=== PATIENT | female | born 1950 | race Caucasian/White ===

== ENCOUNTER 2024-07-31 06:33 | Emergency (ER) | payer MEDICARE, OTHER, SELFPAY ==
[2024-07-31 06:36] VITALS: BP 157/83
--- NOTE | 2024-07-31 07:32 | ED.GENMED ---
History of Present Illness
General
Chief Complaint: Urinary Symptoms
Source: patient
Time Seen by Provider: 07/31/24 07:21
History of Present Illness
History of Present Illness:
73yoF with a history of hypothyroidism and GERD presenting for evaluation of UTI symptoms. Symptoms initially began on 07/10/24. She initially started with a 'weird feeling' in her bladder with urinary frequency. She took pyridium for a few days
without improvement. She called her PCP who prescribed her Cipro but no urine testing was sent at that time. She took 3 days of Cipro without improvement and she was seen at [facility]. She had lab work as well as a urinalysis at that time and
she was told that the urine testing was negative for infection. She continues to have urinary frequency. She developed dysuria yesterday and had a sharp pain in her suprapubic region after urination. Her PCP told her to go to the ED for a CT scan.
She denies any fevers, chills, vomiting, flank pain. She has a history of frequent UTIs after intercourse in the past but she has not had a UTI in about 10 years.
Phy Exam
General Physical Exam
General Presentation: well appearing and no apparent distress
General age: appears stated age
General Skin: warm and dry
General Habitus: normal
Cardiovascular Exam
Cardiovascular Exam: regular rate/rhythm
Pulmonary Exam
Pulmonary Exam: lungs clear, no respiratory distress, no crackles and no wheezing
Gastrointestinal Exam
Gastrointestinal Exam: soft, non distended, no cva tenderness and tender (Mild tenderness in suprapubic region)
Skin Exam
Skin Exam: normal color and warm/dry
Psychiatric Exam
Psychiatric Exam: normal mood/affect
Course
Orders/Labs/Results
Orders:
Orders
07/31/24 07:31
0.9% Sodium Chloride 500 ml [Nss] 500 ml IV BOLUS
07/31/24 07:38
Complete Blood Count/With Diff Urgent
Comprehensive Metabolic Panel Urgent
Urinalysis Reflex To Culture Urgent
Date Specimen was Collected: 07/31/24
Time Specimen was Collected: 07:36
07/31/24 07:39
CT Abd/pel Without Iv Or Oral Urgent
Comment:
Reason For Exam: Suprapubic pain, urinary frequency
Abnormal Lab Results
07/31/24
07:38
WBC 4.4 L 10^3/uL
(4.8-10.8)
MPV 10.7 H fL
(7.4-10.4)
Monocytes % 11.0 H %
(1.7-9.3)
Carbon Dioxide 33 H mmol/L
(22-30)
Total Bilirubin 1.5 H mg/dl
(0.2-1.3)
07/31/24 07:38
07/31/24 07:38
Vital Signs
Initial and Last Documented VS:
Initial Vital Signs
Temp Pulse Resp BP Pulse Ox
98.1 F 59 16 157/83 100
07/31/24 06:36 07/31/24 06:36 07/31/24 06:36 07/31/24 06:36 07/31/24 06:36
Last Documented Vital Signs
Temp Pulse Resp BP Pulse Ox
98.1 F 84 16 108/64 98
07/31/24 06:36 07/31/24 10:26 07/31/24 10:26 07/31/24 10:26 07/31/24 10:26
MDM/Problems Addressed
Differential Diagnosis Includes:
73yoF here with several weeks of UTI symptoms. She was treated with Cipro earlier in the month without improvement. Urine culture sent from urgent care on 07/19 was negative. Patient here with persistent symptoms. No fevers, vomiting, flank pain.
Patient is afebrile and hemodynamically stable. She is well-appearing in no acute distress. She has mild tenderness in the suprapubic region on exam. No CVA tenderness noted. Differential diagnosis includes but is not limited to: UTI,
pyelonephritis, kidney stone
Initial ED plan: Check CBC, CMP, UA, and CT abdomen. Patient has allergy to IV contrast (hives) and states that she is unable to receive Benadryl and epinephrine due to prior side effects. Will proceed with CT without contrast.
*Critical Care Note
Total Time (30-74mins, 75-104mins- exclusive of procedures): Not Applicable
Update Note
Update Note:
Labs overall unremarkable. Renal function and glucose normal. UA bland without any signs of infection or microscopic hematuria. CT abdomen is negative for acute findings. Unclear etiology of symptoms. She has an appt with gynecology and
urogynecology upcoming this week. ED return precautions discussed. She was discharged in stable condition.
ED Attending Note
-
Portions of this chart may have been created with voice recognition software.� Occasional wrong word or��sound alike� substitutions may have occurred due to the inherent limitations of voice recognition software.
Discharge Plan
Departure
Patient Disposition: Home (Routine Discharge)
Date of Disposition: 07/31/24
Time of Disposition: 10:01
Patient with high blood pressure during this ER visit?: No
Discharge Problem:
Urinary frequency, Dysuria
Instructions: Urinalysis
Referrals:
Claudia Baez MD [Family Provider] -
Activity Restrictions/Additional Instructions:
Please follow-up with urogynecology this week as previously scheduled. Return to the ER with any new or worsening symptoms.
Interventions
Interventions:
*Risk Screen - Suicide Last Done: 07/31/24 06:36
*General Assessment Last Done: 07/31/24 08:55
*Neglect/Abuse Screening Last Done: 07/31/24 06:36
ED- Fall Risk Assessment Last Done: 07/31/24 08:51
*ED COVID-19 Vaccine History Last Done: 07/31/24 06:36
*Nursing Disposition Last Done: 07/31/24 10:26
ED-Female Genitourinary Assessment Last Done: 07/31/24 08:00
Discharge Date and Time
Discharge Date/Time: 07/31/24 10:29
Print Language: [employer] GUINE[employer]
[2024-07-31] MEDS: NSS 500 IV (07:48)
[2024-07-31 08:11] LABS: ALT (SGPT) 19 U/L (0-35); AST (SGOT) 27 U/L (14-36); Alkaline Phosphatase 80 U/L (38-126); Blood Urea Nitrogen 14 mg/dl (7-17); Calcium 9.5 mg/dl (8.4-10.2); Carbon Dioxide 33 mmol/L (22-30); Chloride 104 mmol/L (98-107); Glucose 90 mg/dl (70-99); Potassium 4.1 mmol/L (3.5-5.1); Sodium 143 mmol/L (135-145); Total Bilirubin 1.5 mg/dl (0.2-1.3); Total Protein 6.5 g/dl (6.3-8.2); eGFR > 60.00
[2024-07-31 08:13] LABS: % Basophils 0.9 % (0-2); % Eosinophils 2.1 % (0-6); % Immature Granulocytes 0.2 % (0-0.5); % Lymphocytes 36.8 % (20.5-51.1); Absolute Eosinophils 0.1 10^3/uL (0-0.7); Absolute Lymphocytes 1.6 10^3/uL (1.2-3.4); Absolute Monocytes 0.5 10^3/uL (0.1-0.6); Absolute Neutrophils 2.1 10^3/uL (1.4-6.5); Hematocrit 39.3 % (37.0-47.0); Hemoglobin 13.6 g/dL (12.0-16.0); Mean Corp Hgb Conc. 34.6 g/dL (33.0-37.0); Mean Corpuscular Hgb 30.5 pg (27.0-31.0); Mean Corpuscular Volume 88.1 fL (81.0-99.0); Mean Platelet Volume 10.7 fL (7.4-10.4); Nucleated Red Blood Cells % 0 %; Platelet Count 163 10^3/uL (130-400); Red Blood Cell Count 4.46 10^6/uL (4.20-5.40); Red Cell Dist. Width 13.2 % (11.5-14.5); White Blood Cell Count 4.4 10^3/uL (4.8-10.8)
[2024-07-31 08:22] LABS: Urine Albumin Negative (Neg - Trace); Urine Bilirubin Negative (Negative); Urine Character Clear (Clear); Urine Color Yellow; Urine Glucose Negative (Negative); Urine Ketone Negative (Negative); Urine Leukocyte Negative (Negative); Urine Nitrite Negative (Negative); Urine Occult Blood Negative (Negative); Urine Urobilinogen Negative (Neg - 1+); Urine pH 6.5 (5.0-9.0)
[2024-07-31 09:18] VITALS: BP 122/67
[2024-07-31 10:26] VITALS: BP 108/64
== END 2024-07-31 10:29 | disposition home or self-care (01) ==
LOC: EMR 06:33
PROVIDERS: Physician Assistant; EMERGENCY PHYSICIAN Emergency Medicine; FAMILY PHYSICIAN Internal Medicine
DX: R30.0 Dysuria (principal); R35.0 Frequency of micturition; R10.2 Pelvic and perineal pain; E03.9 Hypothyroidism, unspecified; K21.9 Gastro-esophageal reflux disease without esophagitis; Z87.440 Personal history of urinary (tract) infections; Z91.041 Radiographic dye allergy status
CPT/HCPCS: 99284; 96360; 74176; 80053; 81003; 85025